=== PATIENT | female | born 1980 | race Caucasian/White ===

== ENCOUNTER → 2016-09-03 | Outpatient (CLI) | payer BC | LOC: US 08:39 | DX: E04.1 Nontoxic single thyroid nodule (principal) | CPT/HCPCS: 10022; 76536 ==

== ENCOUNTER → 2020-08-06 | Outpatient (CLI) | payer BC ==
[~2020-08-06] MED LIST: HYDROCODON-ACE1 EAC4 PO; LEVOTHYROXINE25 MCG PO; METOPROLOL SUCC25 MG PO; MONTELUKAST SOD10 MG PO; NAPROSYN500 MG PO; ZOFRAN 4 MG TAB4 MG PO
[2020-08-06 09:28] LABS: RED BLOOD COUNT 4.67 M/UL (4.00-5.10); WHITE BLOOD COUNT 9.1 K/UL (4.5-11.0)
== END ==
LOC: OPSV2 08:00
PROVIDERS: Obstetrics & Gynecology
DX: Z01.812 Encounter for preprocedural laboratory examination (principal); N93.9 Abnormal uterine and vaginal bleeding, unspecified
CPT/HCPCS: 36415; 81001; 85025

== ENCOUNTER → 2020-08-08 | Day surgery (SDC) | payer BC ==
[~2020-08-08] VITALS: Ht 167.6 cm; Wt 107.5 kg
== END | disposition home or self-care (01) ==
LOC: OR 06:06
DX: N92.0 Excessive and frequent menstruation with regular cycle (principal); I10 Essential (primary) hypertension; E78.5 Hyperlipidemia, unspecified; E66.01 Morbid (severe) obesity due to excess calories; Z79.899 Other long term (current) drug therapy
CPT/HCPCS: J1100; J1885; J2001; J2250; J2405; J2704; J2795; J3010; J7030; J7120

== ENCOUNTER → 2021-02-17 | Outpatient (CLI) | payer BC | LOC: KOH-I 16:00 | DX: E03.9 Hypothyroidism, unspecified (principal); E04.2 Nontoxic multinodular goiter | CPT/HCPCS: 76536 ==

== ENCOUNTER → 2021-04-07 | Outpatient (CLI) | payer BC | LOC: HEART 5 12:55 | DX: R60.9 Edema, unspecified (principal); I10 Essential (primary) hypertension | CPT/HCPCS: 93306 ==